=== PATIENT | female | born 1980 | race Caucasian/White ===

== ENCOUNTER 2018-08-16 21:44 | Emergency (ER) | payer MEDICAID ==
[~2018-08-16] VITALS: Ht 147.3 cm; Wt 80.5 kg
[~2018-08-16 21:44] MED LIST: AZIT500T5 PO; DOXE150C PO; GABA600T13 PO; LACT1CAP26 PO; METO25TA6 PO; SUCR1TAB34 PO; TIZA2TAB4 PO; UMEC1DIS INH
[2018-08-16] MEDS ORDERED: ipratropium/albuterol 3ml nebule NEB ONE (22:15)
[2018-08-16] MEDS ORDERED: predniSONE 20 mg tablet PO ONE (22:15)
[2018-08-16 22:32] LABS: BASOPHILS # (AUTO) 0.1 X10'3 (0-0.2); BASOPHILS % (AUTO) 0.6 % (0-1); EOSINOPHILS # (AUTO) 0.3 X10'3 (0-0.9); EOSINOPHILS % (AUTO) 1.5 % (0-6); HEMATOCRIT 40.8 % (35.0-45.0); HEMOGLOBIN 13.8 g/dl (12.0-16.0); LYMPHOCYTES # (AUTO) 2.4 X10'3 (1.1-4.8); LYMPHOCYTES % (AUTO) 14.1 % (21-51); MEAN CORPUSCULAR HEMOGLOBIN 30.2 PG (27.0-31.0); MEAN CORPUSCULAR HGB CONC 33.8 g/dL (33.0-36.5); MEAN CORPUSCULAR VOLUME 89.4 FL (78-98); MEAN PLATELET VOLUME 7.7 FL (7.4-10.4); MONOCYTES # (AUTO) 1.1 X10'3 (0-0.9); MONOCYTES % (AUTO) 6.4 % (2-12); NEUTROPHILS # (AUTO) 13.1 X10'3 (1.8-7.7); NEUTROPHILS % (AUTO) 77.4 % (42-75); PLATELET COUNT 278 X10'3 (140-440); RED BLOOD COUNT 4.56 X10'6 (4.20-5.60); RED CELL DISTRIBUTION WIDTH 14.2 % (11.5-14.5); WHITE BLOOD COUNT 16.9 X10'3 (4.5-11.0)
[2018-08-16 22:41] LABS: ALANINE AMINOTRANSFERASE 15 U/L (12-78); ALBUMIN 3.3 G/DL (3.4-5.0); ALBUMIN/GLOBULIN RATIO 0.9 (1.1-1.5); ALKALINE PHOSPHATASE 120 IU/L (46-116); ANION GAP 10 (8-16); ASPARTATE AMINO TRANSFERASE 12 U/L (10-37); BILIRUBIN,TOTAL 0.3 MG/DL (0.1-1.0); BLOOD UREA NITROGEN 5 MG/DL (7-18); BUN/CREATININE RATIO 6.1 (6.6-38.0); CALCIUM 8.8 MG/DL (8.5-10.1); CHLORIDE 103 MMOL/L (99-107); CREATININE 0.82 MG/DL (0.40-0.90); GLUCOSE 106 MG/DL (70-104); POTASSIUM 3.2 MMOL/L (3.5-5.1); SODIUM 137 MMOL/L (135-145); eGFR 79 ML/MIN
[2018-08-16 22:56] LABS: PLATELET ESTIMATE NORMAL; TOTAL CELLS COUNTED 100
[2018-08-16 23:29] LABS: CLARITY,URINE CLEAR (Clear); COLOR,URINE YELLOW (Yellow); GLUCOSE, URINE NEGATIVE (Neg); KETONES,URINE NEGATIVE (Neg); LEUKOCYTE ESTERASE ,URINE NEGATIVE (Neg); NITRITES, URINE NEGATIVE (Neg); OCCULT BLOOD,URINE NEGATIVE (Neg); PROTEIN,URINE NEGATIVE (Neg); UA COLLECTION TYPE OTHER; UROBILINOGEN,URINE 0.2 E.U/dL (0.2-1.0)
[2018-08-16 23:46] LABS: URINE AMPHETAMINE SCREEN NEGATIVE (Neg); URINE BARBITUATE SCREEN NEGATIVE (Neg); URINE BENZODIAZEPINES SCREEN NEGATIVE (Neg); URINE CANNABINOID SCREEN POSITIVE (Neg); URINE COCAINE SCREEN NEGATIVE (Neg); URINE METHADONE SCREEN NEGATIVE (Neg); URINE OPIATE SCREEN NEGATIVE (Neg); URINE PHENCYCLIDINE SCREEN NEGATIVE (Neg)
[2018-08-16] MEDS ORDERED: ALBU6.7H INH (23:55)
[2018-08-16] MEDS ORDERED: AZIT250T2 PO (23:55)
[2018-08-16] MEDS ORDERED: PRED20TA PO (23:55)
[2018-08-17 00:21] VITALS: BP 131/78
== END 2018-08-17 00:23 | disposition home or self-care (01) ==
LOC: ER 21:45
DX: J45.909 Unspecified asthma, uncomplicated (principal); F17.200 Nicotine dependence, unspecified, uncomplicated; I48.91 Unspecified atrial fibrillation; K21.9 Gastro-esophageal reflux disease without esophagitis; Z88.1 Allergy status to other antibiotic agents; Z79.899 Other long term (current) drug therapy
CPT/HCPCS: 36415; 71045; 80053; 80305; 81003; 83605; 84145; 85025; 87040; 94640; 94760; 99284; J7512

== ENCOUNTER 2019-05-11 16:38 | Emergency (ER) | payer MEDICAID, OTHER ==
[~2019-05-11] VITALS: Ht 147.3 cm; Wt 78.6 kg
[~2019-05-11 16:38] MED LIST changes: +ALBU6.7H9 INH; -AZIT500T5 PO; +AZIT500T9 PO; +IBUP-1985 PO; -TIZA2TAB4 PO; +TIZA2TAB5 PO
[2019-05-11 17:44] LABS: BASOPHILS # (AUTO) 0.1 X10'3 (0-0.2); BASOPHILS % (AUTO) 0.3 % (0-1); EOSINOPHILS % (AUTO) 0 % (0-6); HEMATOCRIT 39.1 % (35.0-45.0); HEMOGLOBIN 13.7 g/dl (12.0-16.0); LYMPHOCYTES # (AUTO) 1.7 X10'3 (1.1-4.8); LYMPHOCYTES % (AUTO) 7.9 % (21-51); MEAN CORPUSCULAR HEMOGLOBIN 31.7 PG (27.0-31.0); MEAN CORPUSCULAR VOLUME 90.5 FL (78-98); MEAN PLATELET VOLUME 7.8 FL (7.4-10.4); MONOCYTES # (AUTO) 1.3 X10'3 (0-0.9); MONOCYTES % (AUTO) 5.7 % (2-12); NEUTROPHILS % (AUTO) 86.1 % (42-75); PLATELET COUNT 256 X10'3 (140-440); RED BLOOD COUNT 4.32 X10'6 (4.20-5.60); RED CELL DISTRIBUTION WIDTH 12.7 % (11.5-14.5); WHITE BLOOD COUNT 22.1 X10'3 (4.5-11.0)
[2019-05-11] MEDS ORDERED: normal saline 1000ML IV soln IVB ONE ×2 (17:55→18:25)
[2019-05-11 17:56] LABS: ALANINE AMINOTRANSFERASE 22 U/L (12-78); ALBUMIN 3.3 G/DL (3.4-5.0); ALBUMIN/GLOBULIN RATIO 0.9 (1.1-1.5); ALKALINE PHOSPHATASE 119 IU/L (46-116); ANION GAP 9 (8-16); ASPARTATE AMINO TRANSFERASE 20 U/L (10-37); BILIRUBIN,TOTAL 0.2 MG/DL (0.1-1.0); BLOOD UREA NITROGEN 8 MG/DL (7-18); BUN/CREATININE RATIO 10.1 (6.6-38.0); CALCIUM 8.4 MG/DL (8.5-10.1); CHLORIDE 104 MMOL/L (99-107); CREATININE 0.79 MG/DL (0.40-0.90); GLUCOSE 112 MG/DL (70-104); SODIUM 138 MMOL/L (135-145); TOTAL CARBON DIOXIDE 25.3 MMOL/L (24-32); TOTAL PROTEIN 7.1 G/DL (6.4-8.2); eGFR 82 ML/MIN
[2019-05-11] MEDS ORDERED: metoprolol tartrate 50mg tablet PO ONE (18:25)
[2019-05-11] MEDS ORDERED: CefTRIAXone 2gm/D5W 50ml 50 ML IV ONE (19:05)
[2019-05-11 20:13] VITALS: BP 114/71
== END 2019-05-11 20:10 | disposition home or self-care (01) ==
LOC: ER 16:39
DX: J18.1 Lobar pneumonia, unspecified organism (principal); I47.1 Supraventricular tachycardia; I48.91 Unspecified atrial fibrillation; K21.9 Gastro-esophageal reflux disease without esophagitis; F41.9 Anxiety disorder, unspecified; Z88.1 Allergy status to other antibiotic agents; Z88.8 Allergy status to other drugs, medicaments and biological substances; Z79.899 Other long term (current) drug therapy
CPT/HCPCS: 36415; 71045; 80053; 84145; 84484; 85025; 93005; 96365; 99284; J0696; J7030

== ENCOUNTER 2019-11-20 11:36 | Emergency (ER) | payer MEDICAID ==
[~2019-11-20] VITALS: Ht 147.3 cm; Wt 85.0 kg
[~2019-11-20 11:36] MED LIST changes: -TIZA2TAB5 PO; +TIZA2TAB7 PO
[2019-11-20 12:36] LABS: BASOPHILS # (AUTO) 0.1 X10'3 (0-0.2); BASOPHILS % (AUTO) 0.4 % (0-1); EOSINOPHILS # (AUTO) 0.6 X10'3 (0-0.9); EOSINOPHILS % (AUTO) 4.1 % (0-6); HEMOGLOBIN 14.7 g/dl (12.0-16.0); LYMPHOCYTES # (AUTO) 3.4 X10'3 (1.1-4.8); LYMPHOCYTES % (AUTO) 23.6 % (21-51); MEAN CORPUSCULAR HEMOGLOBIN 31.8 PG (27.0-31.0); MEAN CORPUSCULAR HGB CONC 34.1 g/dL (33.0-36.5); MEAN CORPUSCULAR VOLUME 93.3 FL (78-98); MEAN PLATELET VOLUME 7.4 FL (7.4-10.4); MONOCYTES # (AUTO) 0.8 X10'3 (0-0.9); MONOCYTES % (AUTO) 5.7 % (2-12); NEUTROPHILS # (AUTO) 9.5 X10'3 (1.8-7.7); NEUTROPHILS % (AUTO) 66.2 % (42-75); PLATELET COUNT 340 X10'3 (140-440); RED BLOOD COUNT 4.61 X10'6 (4.20-5.60); RED CELL DISTRIBUTION WIDTH 13.3 % (11.5-14.5); WHITE BLOOD COUNT 14.3 X10'3 (4.5-11.0)
[2019-11-20 12:43] LABS: D-DIMER 0.28 MG/L FEU (0-0.50)
[2019-11-20 12:46] LABS: ALANINE AMINOTRANSFERASE 18 U/L (12-78); ALBUMIN 3.6 G/DL (3.4-5.0); ALBUMIN/GLOBULIN RATIO 0.9 (1.1-1.5); ALKALINE PHOSPHATASE 134 IU/L (46-116); ANION GAP 10 (8-16); ASPARTATE AMINO TRANSFERASE 13 U/L (10-37); BILIRUBIN,TOTAL 0.2 MG/DL (0.1-1.0); BLOOD UREA NITROGEN 6 MG/DL (7-18); BUN/CREATININE RATIO 6.2 (6.6-38.0); CALCIUM 9.1 MG/DL (8.5-10.1); CHLORIDE 106 MMOL/L (99-107); CREATININE 0.97 MG/DL (0.40-0.90); GLUCOSE 101 MG/DL (70-104); POTASSIUM 4.5 MMOL/L (3.5-5.1); SODIUM 143 MMOL/L (135-145); TOTAL CARBON DIOXIDE 26.9 MMOL/L (24-32); TOTAL PROTEIN 7.4 G/DL (6.4-8.2); eGFR 65 ML/MIN
[2019-11-20 12:52] LABS: CLARITY,URINE TURBID (Clear); COLOR,URINE RED (Yellow); GLUCOSE, URINE NEGATIVE (Neg); KETONES,URINE NEGATIVE (Neg); LEUKOCYTE ESTERASE ,URINE TRACE (Neg); NITRITES, URINE NEGATIVE (Neg); OCCULT BLOOD,URINE LARGE (Neg); PROTEIN,URINE 30 mg/dl (Neg); UROBILINOGEN,URINE 0.2 E.U/dL (0.2-1.0)
[2019-11-20 12:56] LABS: UA COLLECTION TYPE CLN CATCH MIDSTREAM
[2019-11-20 13:09] LABS: BACTERIA,URINE NONE SEEN /HPF (Neg); RBC,URINE TNTC /HPF (0-2); SQUAMOUS EPITHELIAL CELL,UR FEW /LPF (FEW); WBC,URINE 0-4 /HPF (0-4)
[2019-11-20] MEDS ORDERED: metoprolol succinate 25mg (24-HOUR) SR. Tablet PO ONE (13:35)
[2019-11-20] MEDS ORDERED: acetaminophen 325mg tablet PO ONE (13:35)
[2019-11-20 13:49] VITALS: BP 115/79
[2019-11-20 15:16] LABS: URINE HCG NEGATIVE (NEG)
== END 2019-11-20 13:52 | disposition home or self-care (01) ==
LOC: ER 11:37
DX: R00.2 Palpitations (principal); R53.1 Weakness; I48.91 Unspecified atrial fibrillation; K21.9 Gastro-esophageal reflux disease without esophagitis; F41.9 Anxiety disorder, unspecified; Z87.440 Personal history of urinary (tract) infections; Z88.1 Allergy status to other antibiotic agents; Z88.8 Allergy status to other drugs, medicaments and biological substances; Z79.2 Long term (current) use of antibiotics; Z79.899 Other long term (current) drug therapy
CPT/HCPCS: 36415; 71045; 80053; 81001; 81025; 83735; 83880; 84484; 85025; 85379; 87088; 93005; 99285

== ENCOUNTER 2020-12-21 19:52 | Emergency (ER) | payer MEDICAID ==
[~2020-12-21] VITALS: Ht 147.3 cm; Wt 91.0 kg
[~2020-12-21 19:52] MED LIST changes: +LOP25T PO; -METO25TA6 PO; +TIZA-189 PO; -TIZA2TAB7 PO
[2020-12-21] MEDS ORDERED: albuterol 2.5 MG/3 ML nebule CONTNEB PRN (20:20)
[2020-12-21] MEDS ORDERED: AZIT-63 PO (21:36)
[2020-12-21 22:09] VITALS: BP 143/72
== END 2020-12-21 22:13 | disposition home or self-care (01) ==
LOC: ER 19:53
DX: J45.909 Unspecified asthma, uncomplicated (principal); J20.9 Acute bronchitis, unspecified; K21.9 Gastro-esophageal reflux disease without esophagitis; I48.91 Unspecified atrial fibrillation; Z20.822 Contact with and (suspected) exposure to COVID-19; Z87.440 Personal history of urinary (tract) infections; Z88.1 Allergy status to other antibiotic agents; Z88.5 Allergy status to narcotic agent; Z79.899 Other long term (current) drug therapy
CPT/HCPCS: 71045; 87635; 94640; 94644; 99285; C9803; 94760; A7015

== ENCOUNTER 2021-04-23 18:25 | Emergency (ER) | payer MEDICAID ==
[~2021-04-23] VITALS: Ht 149.9 cm; Wt 81.8 kg
[2021-04-23 18:33] VITALS: BP 127/76
[2021-04-23] MEDS ORDERED: bisacodyl 10mg suppository rectal RC STA (19:34)
[2021-04-23] MEDS ORDERED: BISA10SU62 RC (19:35)
[2021-04-23] MEDS ORDERED: magnesium citrate 296ml oral solution PO ONE (19:35)
== END 2021-04-23 20:52 | disposition home or self-care (01) ==
LOC: ER 18:26
DX: K59.00 Constipation, unspecified (principal); I48.91 Unspecified atrial fibrillation; K21.9 Gastro-esophageal reflux disease without esophagitis; F41.9 Anxiety disorder, unspecified; Z87.440 Personal history of urinary (tract) infections; Z88.5 Allergy status to narcotic agent; Z88.1 Allergy status to other antibiotic agents; Z88.8 Allergy status to other drugs, medicaments and biological substances; Z79.2 Long term (current) use of antibiotics; Z79.899 Other long term (current) drug therapy
CPT/HCPCS: 74018; 99283; 99284

== ENCOUNTER 2021-09-16 12:03 | Emergency (ER) | payer MEDICAID ==
[~2021-09-16] VITALS: Ht 152.4 cm; Wt 83.6 kg
[~2021-09-16 12:03] MED LIST changes: +BISA10SU62 RC
[2021-09-16 13:09] LABS: BASOPHILS # (AUTO) 0.1 X10'3 (0-0.2); BASOPHILS % (AUTO) 0.5 % (0-1); EOSINOPHILS # (AUTO) 0.4 X10'3 (0-0.9); EOSINOPHILS % (AUTO) 3.2 % (0-6); HEMATOCRIT 39.9 % (35.0-45.0); HEMOGLOBIN 13.4 g/dl (12.0-16.0); LYMPHOCYTES # (AUTO) 1.1 X10'3 (1.1-4.8); LYMPHOCYTES % (AUTO) 8.7 % (21-51); MEAN CORPUSCULAR HEMOGLOBIN 30.1 PG (27.0-31.0); MEAN CORPUSCULAR HGB CONC 33.6 g/dL (33.0-36.5); MEAN CORPUSCULAR VOLUME 89.4 FL (78-98); MEAN PLATELET VOLUME 6.6 FL (7.4-10.4); MONOCYTES % (AUTO) 7.6 % (2-12); NEUTROPHILS # (AUTO) 10.3 X10'3 (1.8-7.7); PLATELET COUNT 327 X10'3 (140-440); RED BLOOD COUNT 4.46 X10'6 (4.20-5.60); RED CELL DISTRIBUTION WIDTH 13.7 % (11.5-14.5); WHITE BLOOD COUNT 12.9 X10'3 (4.5-11.0)
[2021-09-16 13:30] LABS: ALANINE AMINOTRANSFERASE 28 U/L (12-78); ALBUMIN 3.8 G/DL (3.4-5.0); ALKALINE PHOSPHATASE 128 IU/L (46-116); ANION GAP 10 (8-16); ASPARTATE AMINO TRANSFERASE 16 U/L (10-37); BILIRUBIN,TOTAL 0.2 MG/DL (0.1-1.0); BLOOD UREA NITROGEN 7 MG/DL (7-18); BUN/CREATININE RATIO 9.7 (6.6-38.0); CALCIUM 8.9 MG/DL (8.5-10.1); CHLORIDE 97 MMOL/L (99-107); CREATININE 0.72 MG/DL (0.40-0.90); GLUCOSE 100 MG/DL (70-104); SODIUM 133 MMOL/L (135-145); TOTAL CARBON DIOXIDE 26.4 MMOL/L (24-32); TOTAL PROTEIN 7.6 G/DL (6.4-8.2); eGFR > 90 ML/MIN
[2021-09-16] MEDS ORDERED: CefTRIAXone 2gm/D5W 50ml BAG 50 ML IV ONE (13:40)
[2021-09-16] MEDS ORDERED: magnesium 2GM in 50ml NS 50 ML IV ONE (13:40)
[2021-09-16] MEDS ORDERED: methylPREDNISolone sod succ 125mg/2ml vial IV ONE (13:40)
[2021-09-16] MEDS ORDERED: DOXY100C43 PO (13:43)
[2021-09-16] MEDS ORDERED: PRED20TA PO (13:43)
[2021-09-16] MEDS ORDERED: CefTRIAXone 2gm/NS 100ml IVPB 100 ML IV ONE (13:45)
[2021-09-16] MEDS ORDERED: normal saline 1000ML IV soln IVB ONE (13:45)
[2021-09-16 14:06] LABS: D-DIMER 0.32 MG/L FEU (0-0.50)
[2021-09-16 15:20] VITALS: BP 138/75
== END 2021-09-16 15:25 | disposition home or self-care (01) ==
LOC: ER 12:04
DX: J45.909 Unspecified asthma, uncomplicated (principal); I48.91 Unspecified atrial fibrillation; K21.9 Gastro-esophageal reflux disease without esophagitis; Z87.19 Personal history of other diseases of the digestive system; Z87.440 Personal history of urinary (tract) infections; Z88.1 Allergy status to other antibiotic agents; Z88.5 Allergy status to narcotic agent; Z88.8 Allergy status to other drugs, medicaments and biological substances; Z79.2 Long term (current) use of antibiotics; Z79.899 Other long term (current) drug therapy
CPT/HCPCS: 36415; 71045; 80053; 83880; 84484; 85025; 85379; 93005; 96365; 96368; 96375; 99285; J0696; J2930; J3475; J7030

== ENCOUNTER 2022-05-09 22:28 | Emergency (ER) | payer MEDICAID ==
[~2022-05-09] VITALS: Ht 152.4 cm; Wt 83.2 kg
[~2022-05-09 22:28] MED LIST changes: +ALBU6.7H14 INH; -ALBU6.7H9 INH
[2022-05-10 00:01] LABS: BASOPHILS % (AUTO) 0.2 % (0-1); EOSINOPHILS # (AUTO) 0.1 X10'3 (0-0.9); EOSINOPHILS % (AUTO) 0.6 % (0-6); HEMATOCRIT 39.3 % (35.0-45.0); HEMOGLOBIN 13.6 g/dl (12.0-16.0); LYMPHOCYTES # (AUTO) 2.8 X10'3 (1.1-4.8); LYMPHOCYTES % (AUTO) 11.8 % (21-51); MEAN CORPUSCULAR HEMOGLOBIN 31.6 PG (27.0-31.0); MEAN CORPUSCULAR HGB CONC 34.5 g/dL (33.0-36.5); MEAN CORPUSCULAR VOLUME 91.4 FL (78-98); MEAN PLATELET VOLUME 6.5 FL (7.4-10.4); MONOCYTES # (AUTO) 1.8 X10'3 (0-0.9); MONOCYTES % (AUTO) 7.5 % (2-12); NEUTROPHILS # (AUTO) 19.1 X10'3 (1.8-7.7); NEUTROPHILS % (AUTO) 79.9 % (42-75); PLATELET COUNT 383 X10'3 (140-440); RED CELL DISTRIBUTION WIDTH 13.1 % (11.5-14.5); WHITE BLOOD COUNT 23.9 X10'3 (4.5-11.0)
[2022-05-10 00:04] LABS: ALANINE AMINOTRANSFERASE 25 U/L (12-78); ALBUMIN 3.8 G/DL (3.4-5.0); ALBUMIN/GLOBULIN RATIO 1.1 (1.1-1.5); ALKALINE PHOSPHATASE 119 IU/L (46-116); ANION GAP 8 (8-16); ASPARTATE AMINO TRANSFERASE 15 U/L (10-37); BILIRUBIN,TOTAL 0.2 MG/DL (0.1-1.0); BLOOD UREA NITROGEN 6 MG/DL (7-18); BUN/CREATININE RATIO 8.2 (6.6-38.0); CALCIUM 9.1 MG/DL (8.5-10.1); CHLORIDE 101 MMOL/L (99-107); CREATININE 0.73 MG/DL (0.40-0.90); GLUCOSE 97 MG/DL (70-104); MAGNESIUM 1.9 MG/DL (1.5-2.4); POTASSIUM 3.4 MMOL/L (3.5-5.1); SODIUM 134 MMOL/L (135-145); TOTAL CARBON DIOXIDE 24.9 MMOL/L (24-32); TOTAL PROTEIN 7.2 G/DL (6.4-8.2); eGFR 89 ML/MIN
[2022-05-10] MEDS ORDERED: azithromycin 250mg tablet PO ONE (02:10)
[2022-05-10] MEDS ORDERED: CefTRIAXone 2gm/D5W 50ml BAG 50 ML IV ONE (02:10)
[2022-05-10] MEDS ORDERED: magnesium 2GM in 50ml NS 50 ML IV ONE (02:10)
[2022-05-10] MEDS ORDERED: albuterol 2.5 MG/3 ML nebule NEB ONE (02:10)
[2022-05-10] MEDS ORDERED: normal saline 1000ML IV soln IVB ONE (02:10)
[2022-05-10] MEDS ORDERED: ipratropium/albuterol 3ml nebule NEB ONE (02:10)
[2022-05-10 03:15] VITALS: BP 122/65
[2022-05-10] MEDS ORDERED: BUDE90AE IH (04:09)
[2022-05-10] MEDS ORDERED: AZIT250T PO (04:09)
== END 2022-05-10 04:46 | disposition home or self-care (01) ==
LOC: ER 22:29
DX: J45.901 Unspecified asthma with (acute) exacerbation (principal); Z20.822 Contact with and (suspected) exposure to COVID-19; R06.02 Shortness of breath; R05.9 Cough, unspecified; R11.2 Nausea with vomiting, unspecified; I48.91 Unspecified atrial fibrillation; J45.909 Unspecified asthma, uncomplicated; K21.9 Gastro-esophageal reflux disease without esophagitis; G89.29 Other chronic pain; F41.9 Anxiety disorder, unspecified; F31.9 Bipolar disorder, unspecified; Z87.440 Personal history of urinary (tract) infections; Z88.5 Allergy status to narcotic agent; Z88.1 Allergy status to other antibiotic agents; Z88.8 Allergy status to other drugs, medicaments and biological substances; Z79.2 Long term (current) use of antibiotics; Z79.899 Other long term (current) drug therapy
CPT/HCPCS: 36415; 71045; 80053; 83605; 83735; 83880; 84145; 84484; 85025; 87040; 87502; 87503; 87635; 93005; 94640; 96361; 96365; 96366; 96367; 99285; C9803; J0696; J3475; J7030; 94760; 96368

== ENCOUNTER 2023-02-27 11:09 | Emergency (ER) | payer MEDICAID ==
[~2023-02-27] VITALS: Ht 152.4 cm; Wt 84.1 kg
[~2023-02-27 11:09] MED LIST changes: +BUDE90AE IH
[2023-02-27 12:14] VITALS: TEMP 98.3
[2023-02-27 12:59] LABS: D-DIMER 0.35 MG/L FEU (0-0.50)
[2023-02-27 13:00] LABS: BASOPHILS # (AUTO) 0.1 X10'3 (0-0.2); BASOPHILS % (AUTO) 0.4 % (0-1); EOSINOPHILS # (AUTO) 0.2 X10'3 (0-0.9); EOSINOPHILS % (AUTO) 1.5 % (0-6); HEMATOCRIT 40.9 % (35.0-45.0); HEMOGLOBIN 13.8 g/dl (12.0-16.0); LYMPHOCYTES # (AUTO) 2.1 X10'3 (1.1-4.8); LYMPHOCYTES % (AUTO) 14.6 % (21-51); MEAN CORPUSCULAR HEMOGLOBIN 31.5 PG (27.0-31.0); MEAN CORPUSCULAR HGB CONC 33.8 g/dL (33.0-36.5); MEAN CORPUSCULAR VOLUME 93.1 FL (78-98); MEAN PLATELET VOLUME 6.6 FL (7.4-10.4); MONOCYTES # (AUTO) 1.4 X10'3 (0-0.9); MONOCYTES % (AUTO) 9.3 % (2-12); NEUTROPHILS # (AUTO) 10.9 X10'3 (1.8-7.7); NEUTROPHILS % (AUTO) 74.2 % (42-75); PLATELET COUNT 331 X10'3 (140-440); RED CELL DISTRIBUTION WIDTH 13.3 % (11.5-14.5); WHITE BLOOD COUNT 14.6 X10'3 (4.5-11.0)
[2023-02-27 13:05] LABS: ALANINE AMINOTRANSFERASE 17 U/L (12-78); ALBUMIN 3.6 G/DL (3.4-5.0); ALBUMIN/GLOBULIN RATIO 1.1 (1.1-1.5); ALKALINE PHOSPHATASE 112 IU/L (46-116); ANION GAP 6 (8-16); ASPARTATE AMINO TRANSFERASE 15 U/L (10-37); BILIRUBIN,TOTAL 0.3 MG/DL (0.1-1.0); BLOOD UREA NITROGEN 3 MG/DL (7-18); BUN/CREATININE RATIO 4.8 (10.0-20.0); CALCIUM 9.1 MG/DL (8.5-10.1); CHLORIDE 99 MMOL/L (99-107); CREATININE 0.62 MG/DL (0.40-0.90); GLUCOSE 99 MG/DL (70-104); POTASSIUM 3.8 MMOL/L (3.5-5.1); SODIUM 131 MMOL/L (135-145); eCRCL 87 ML/MIN; eGFR > 90 ML/MIN
[2023-02-27 13:16] LABS: PRO BRAIN NATRIURETIC PEPTIDE 92 PG/ML (0-125)
[2023-02-27] MEDS ORDERED: ipratropium/albuterol 3ml nebule NEB ONE (16:40)
[2023-02-27 17:23] VITALS: PULSE 93; RESP 22; O2SAT 91
[2023-02-27] MEDS ORDERED: amox tr/potassium clavulanate 875/125mg TAB PO ONE (17:25)
[2023-02-27] MEDS ORDERED: ALBU8HFA PO (17:26)
[2023-02-27] MEDS ORDERED: AMOX-580 PO (17:26)
[2023-02-27 17:28] VITALS: PULSE 95; RESP 22; O2SAT 100
[2023-02-27] MEDS ORDERED: predniSONE 20 mg tablet PO ONE (17:40)
[2023-02-27 17:49] VITALS: BP 114/69; PULSE 88; O2SAT 92
[2023-02-27 17:54] VITALS: RESP 20
== END 2023-02-27 18:06 | disposition home or self-care (01) ==
LOC: ER 11:09
DX: J20.9 Acute bronchitis, unspecified (principal); Z20.822 Contact with and (suspected) exposure to COVID-19; I48.91 Unspecified atrial fibrillation; I25.10 Atherosclerotic heart disease of native coronary artery without angina pectoris; I25.2 Old myocardial infarction; J44.9 Chronic obstructive pulmonary disease, unspecified; K21.9 Gastro-esophageal reflux disease without esophagitis; G89.29 Other chronic pain; F17.200 Nicotine dependence, unspecified, uncomplicated; Z88.1 Allergy status to other antibiotic agents; Z88.5 Allergy status to narcotic agent; Z79.2 Long term (current) use of antibiotics; Z79.899 Other long term (current) drug therapy
CPT/HCPCS: 36415; 71045; 80053; 83880; 84484; 85025; 85379; 93005; 94640; 99285; J7512; 94760; A4615

== ENCOUNTER 2023-04-17 16:22 | Emergency (ER) | payer MEDICAID ==
[~2023-04-17] VITALS: Ht 152.4 cm; Wt 85.0 kg
[2023-04-17] MEDS ORDERED: dexamethasone sod phosphate 10mg/ml inj IV STA (16:39)
[2023-04-17] MEDS ORDERED: ipratropium 0.5 MG/2.5ML nebule IH PRN (16:40)
[2023-04-17] MEDS ORDERED: albuterol 2.5 MG/3 ML nebule NEB PRN (16:40)
[2023-04-17 17:34] LABS: BASOPHILS % (AUTO) 0.1 % (0-1); EOSINOPHILS % (AUTO) 0 % (0-6); HEMATOCRIT 37.9 % (35.0-45.0); HEMOGLOBIN 12.9 g/dl (12.0-16.0); LYMPHOCYTES # (AUTO) 1.4 X10'3 (1.1-4.8); LYMPHOCYTES % (AUTO) 6.7 % (21-51); MEAN CORPUSCULAR HGB CONC 34.1 g/dL (33.0-36.5); MEAN CORPUSCULAR VOLUME 90.9 FL (78-98); MEAN PLATELET VOLUME 6.3 FL (7.4-10.4); MONOCYTES # (AUTO) 1.2 X10'3 (0-0.9); MONOCYTES % (AUTO) 5.7 % (2-12); NEUTROPHILS # (AUTO) 18.7 X10'3 (1.8-7.7); NEUTROPHILS % (AUTO) 87.5 % (42-75); PLATELET COUNT 353 X10'3 (140-440); RED BLOOD COUNT 4.17 X10'6 (4.20-5.60); RED CELL DISTRIBUTION WIDTH 13.1 % (11.5-14.5); WHITE BLOOD COUNT 21.3 X10'3 (4.5-11.0)
[2023-04-17 17:46] LABS: ALANINE AMINOTRANSFERASE 16 U/L (12-78); ALBUMIN 3.7 G/DL (3.4-5.0); ALBUMIN/GLOBULIN RATIO 1.1 (1.1-1.5); ALKALINE PHOSPHATASE 119 IU/L (46-116); ANION GAP 8 (8-16); ASPARTATE AMINO TRANSFERASE 14 U/L (10-37); BILIRUBIN,TOTAL 0.2 MG/DL (0.1-1.0); BLOOD UREA NITROGEN 3 MG/DL (7-18); BUN/CREATININE RATIO 4.9 (10.0-20.0); CALCIUM 8.9 MG/DL (8.5-10.1); CHLORIDE 90 MMOL/L (99-107); CREATININE 0.61 MG/DL (0.40-0.90); GLUCOSE 134 MG/DL (70-104); SODIUM 124 MMOL/L (135-145); TOTAL CARBON DIOXIDE 26.1 MMOL/L (24-32); TOTAL PROTEIN 7.2 G/DL (6.4-8.2); eCRCL 88 ML/MIN; eGFR > 90 ML/MIN
[2023-04-17 17:54] LABS: C-REACTIVE PROTEIN 5.54 MG/DL (0.0-0.5); MAGNESIUM 1.5 MG/DL (1.5-2.4); PRO BRAIN NATRIURETIC PEPTIDE 107 PG/ML (0-125)
[2023-04-17 17:57] LABS: BETA HCG,QUANTITATIVE < 1.0 mIU/ml
[2023-04-17 19:49] VITALS: PULSE 98; RESP 18; O2SAT 96
[2023-04-17 19:52] VITALS: PULSE 97; RESP 18; O2SAT 98
[2023-04-17] MEDS ORDERED: CefTRIAXone/D5W-Rocephin 1gm 50 ML IV ONE (20:25)
[2023-04-17] MEDS ORDERED: CEFA500C PO (20:35)
[2023-04-17] MEDS ORDERED: DEXA0.5E2 PO (20:43)
[2023-04-17 20:55] VITALS: BP 134/61; PULSE 93; RESP 18; TEMP 98.8; O2SAT 94
== END 2023-04-17 21:00 | disposition left against medical advice (07) ==
LOC: ER 16:23
DX: E87.1 Hypo-osmolality and hyponatremia (principal); Z20.822 Contact with and (suspected) exposure to COVID-19; D72.829 Elevated white blood cell count, unspecified; R06.03 Acute respiratory distress
CPT/HCPCS: 36415; 71045; 80053; 83735; 83880; 84484; 84702; 85025; 85651; 86140; 87502; 87503; 87634; 87811; 93005; 94640; 96365; 96375; 99285; J0696; J1100; J3490; A4615

== ENCOUNTER 2023-05-22 10:49 | Inpatient (IN) | payer MEDICAID ==
[2023-05-22] VITALS (10 sets, daily range): PULSE 69–113; RESP 22–35; O2SAT 94–98
[~2023-05-22] VITALS: Ht 154.9 cm; Wt 80.8 kg
[~2023-05-22 10:49] MED LIST changes: +CEFA500C PO; +DEXA0.5E2 PO
[2023-05-22 11:18] LABS: BASOPHILS % (AUTO) 0.5 % (0-1); MEAN CORPUSCULAR VOLUME 90.2 FL (78-98)
[2023-05-22 11:19] LABS: EOSINOPHILS % (AUTO) 0 % (0-6); HEMATOCRIT 39.6 % (35.0-45.0); HEMOGLOBIN 13.5 g/dl (12.0-16.0); LYMPHOCYTES # (AUTO) 0.9 X10'3 (1.1-4.8); LYMPHOCYTES % (AUTO) 11.5 % (21-51); MEAN CORPUSCULAR HEMOGLOBIN 30.8 PG (27.0-31.0); MEAN CORPUSCULAR HGB CONC 34.1 g/dL (33.0-36.5); MEAN PLATELET VOLUME 6.9 FL (7.4-10.4); MONOCYTES % (AUTO) 12.9 % (2-12); NEUTROPHILS # (AUTO) 5.7 X10'3 (1.8-7.7); NEUTROPHILS % (AUTO) 75.1 % (42-75); PLATELET COUNT 189 X10'3 (140-440); RED BLOOD COUNT 4.39 X10'6 (4.20-5.60); RED CELL DISTRIBUTION WIDTH 13.6 % (11.5-14.5); WHITE BLOOD COUNT 7.6 X10'3 (4.5-11.0)
[2023-05-22 11:33] LABS: ALANINE AMINOTRANSFERASE 15 U/L (12-78); ALBUMIN 3.5 G/DL (3.4-5.0); ALKALINE PHOSPHATASE 97 IU/L (46-116); ANION GAP 7 (8-16); ASPARTATE AMINO TRANSFERASE 34 U/L (10-37); BILIRUBIN,TOTAL 0.2 MG/DL (0.1-1.0); BLOOD UREA NITROGEN 5 MG/DL (7-18); BUN/CREATININE RATIO 6.9 (10.0-20.0); CALCIUM 8.4 MG/DL (8.5-10.1); CHLORIDE 89 MMOL/L (99-107); CREATININE 0.72 MG/DL (0.40-0.90); GLUCOSE 123 MG/DL (70-104); POTASSIUM 3.6 MMOL/L (3.5-5.1); SODIUM 123 MMOL/L (135-145); TOTAL CARBON DIOXIDE 26.8 MMOL/L (24-32); eCRCL 78 ML/MIN; eGFR 90 ML/MIN
[2023-05-22] MEDS ORDERED: methylPREDNISolone sod succ 125mg/2ml vial IV ONE (11:45)
[2023-05-22] MEDS ORDERED: albuterol 2.5 MG/3 ML nebule CONTNEB PRN (11:45)
[2023-05-22] MEDS ORDERED: ipratropium 0.5 MG/2.5ML nebule IH ONE (11:45)
[2023-05-22 11:49] LABS: PRO BRAIN NATRIURETIC PEPTIDE 551 PG/ML (0-125)
[2023-05-22 13:56] LABS: ABG BASE EXCESS -1.2 mmol/L (-2.0-2.0); ABG OXYGEN SATURATION 87.4 % (94-97); ABG PCO2 (T) 36.5 mmHg (32.0-45.0); ABG PH (T) 7.417 (7.350-7.450); ABG PO2 (T) 50.5 mmHg (75.0-100.0); ALLEN'S TEST POSITIVE; FCOHb 2.1 % (0.0-3.9); FHHb 12.3 % (0.0-5.0); FLOW 4 L/min; FMetHb 0.2 % (0.0-1.5); FO2Hb 85.4 % (94-97); MODE NASAL CANNULA; PATIENT TEMPERATURE 36.6; TOTAL HEMOGLOBIN 14.2 G/dl (12.0-16.0)
[2023-05-22] MEDS ORDERED: magnesium 2GM in 50ml NS 50 ML IV PRN (14:25)
[2023-05-22] MEDS ORDERED: ondansetron/PF 4mg/2ml inj IV PRN (14:25)
[2023-05-22] MEDS ORDERED: potassium Cl 20 mEq SR tablet PO PRN ×2 (14:25)
[2023-05-22] MEDS ORDERED: acetaminophen 325mg tablet PO PRN ×2 (14:25)
[2023-05-22] MEDS ORDERED: potassium Cl 40MEQ/1/2NS 520ml 520 ML IV PRN (14:25)
[2023-05-22] MEDS ORDERED: mag hydrox/Alum hydrox/simeth 30ml oral suspension PO PRN (14:25)
[2023-05-22] MEDS ORDERED: magnesium 4gm in 100ml NS 100 ML IV PRN (14:25)
[2023-05-22] MEDS ORDERED: magnesium hydroxide 30ml (MOM) UD suspension PO PRN (14:25)
[2023-05-22] MEDS ORDERED: HYDROcodone/acetaminophen 5mg/325mg tablet PO PRN (14:25)
[2023-05-22] MEDS: normal saline 1000ml 1,000 ML IV SCH (14:25)
[2023-05-22] MEDS ORDERED: HYDROcodone/acetaminophen 10/325mg tab PO PRN (14:25)
[2023-05-22] MEDS: ipratropium/albuterol 3ml nebule NEB SCH ×2 (15:01→20:12)
[2023-05-22] MEDS ORDERED: LORazepam 2 mg/ml vial IV PRN (16:10)
[2023-05-22] MEDS: methylPREDNISolone sod succ/PF 40mg inj. IV SCH (16:31)
[2023-05-22] MEDS: doxycycline inj 100 MG in normal saline 100ml IV soln 100 ML IV SCH (18:32)
[2023-05-22] MEDS: K and/or MAG REPLACEMENT MC SCH (19:36)
[2023-05-22] MEDS: docusate sod 100mg capsule PO SCH (19:37)
[2023-05-22] MEDS ORDERED: metoprolol tartrate 50mg tablet PO SCH (20:00)
[2023-05-22] MEDS: oseltamivir phos 75mg capsule PO SCH (20:40)
[2023-05-22] MEDS: enoxaparin 40mg/0.4ml syringe SQ SCH (20:40)
[2023-05-23] VITALS (21 sets, daily range): BP systolic 96–112; BP diastolic 41–67; PULSE 60–104; RESP 20–36; TEMP 96.8–98.1; O2SAT 95–98
[2023-05-23] MEDS: normal saline 1000ml 1,000 ML IV SCH ×3 (00:20→20:25)
[2023-05-23] MEDS: methylPREDNISolone sod succ/PF 40mg inj. IV SCH ×3 (00:25→18:14)
[2023-05-23] MEDS: albuterol 2.5 MG/3 ML nebule NEB PRN ×3 (01:28→18:45)
[2023-05-23 03:47] LABS: ALANINE AMINOTRANSFERASE 21 U/L (12-78); ALBUMIN 3.2 G/DL (3.4-5.0); ALBUMIN/GLOBULIN RATIO 0.9 (1.1-1.5); ALKALINE PHOSPHATASE 94 IU/L (46-116); ANION GAP 9 (8-16); ASPARTATE AMINO TRANSFERASE 42 U/L (10-37); BILIRUBIN,TOTAL 0.2 MG/DL (0.1-1.0); BLOOD UREA NITROGEN 6 MG/DL (7-18); CALCIUM 8.5 MG/DL (8.5-10.1); CHLORIDE 94 MMOL/L (99-107); CREATININE 0.46 MG/DL (0.40-0.90); GLUCOSE 109 MG/DL (70-104); MAGNESIUM 1.8 MG/DL (1.5-2.4); POTASSIUM 4.7 MMOL/L (3.5-5.1); SODIUM 128 MMOL/L (135-145); TOTAL CARBON DIOXIDE 25.3 MMOL/L (24-32); TOTAL PROTEIN 6.7 G/DL (6.4-8.2); eCRCL 123 ML/MIN; eGFR > 90 ML/MIN
[2023-05-23 03:58] LABS: BASOPHILS % (AUTO) 0.1 % (0-1); EOSINOPHILS % (AUTO) 0 % (0-6); HEMOGLOBIN 12.9 g/dl (12.0-16.0); LYMPHOCYTES # (AUTO) 0.6 X10'3 (1.1-4.8); LYMPHOCYTES % (AUTO) 6.7 % (21-51); MEAN CORPUSCULAR HEMOGLOBIN 30.7 PG (27.0-31.0); MEAN CORPUSCULAR VOLUME 90.3 FL (78-98); MEAN PLATELET VOLUME 7.3 FL (7.4-10.4); MONOCYTES # (AUTO) 0.4 X10'3 (0-0.9); MONOCYTES % (AUTO) 4.4 % (2-12); NEUTROPHILS # (AUTO) 7.9 X10'3 (1.8-7.7); NEUTROPHILS % (AUTO) 88.8 % (42-75); PLATELET COUNT 171 X10'3 (140-440); RED CELL DISTRIBUTION WIDTH 13.7 % (11.5-14.5); WHITE BLOOD COUNT 8.9 X10'3 (4.5-11.0)
[2023-05-23] MEDS: ipratropium/albuterol 3ml nebule NEB SCH ×3 (07:31→22:55)
[2023-05-23] MEDS: K and/or MAG REPLACEMENT MC SCH ×2 (08:00→20:00)
[2023-05-23 08:17] LABS: ABG BASE EXCESS -2.7 mmol/L (-2.0-2.0); ABG HCO3 22.2 mmol/L (22.0-26.0); ABG OXYGEN SATURATION 94.9 % (94-97); ABG PH (T) 7.373 (7.350-7.450); ABG PO2 (T) 75.9 mmHg (75.0-100.0); ALLEN'S TEST POSITIVE; FCOHb 1.5 % (0.0-3.9); FMetHb 0.3 % (0.0-1.5); FO2Hb 93.2 % (94-97); MODE MASK - BIPAP; RESPIRATORY RATE 10 b/min; TOTAL HEMOGLOBIN 14.1 G/dl (12.0-16.0)
[2023-05-23] MEDS ORDERED: metoprolol tartrate 25mg tablet PO SCH ×2 (09:28→10:00)
[2023-05-23] MEDS: doxycycline inj 100 MG in normal saline 100ml IV soln 100 ML IV SCH ×2 (09:36→21:22)
[2023-05-23] MEDS: docusate sod 100mg capsule PO SCH ×2 (10:51→20:27)
[2023-05-23] MEDS: oseltamivir phos 75mg capsule PO SCH ×2 (10:52→20:29)
[2023-05-23] MEDS ORDERED: CYCL5TAB PO (16:13)
[2023-05-23] MEDS ORDERED: LORA-268 PO (16:13)
[2023-05-23] MEDS ORDERED: PRAZ2CAP2 PO (16:13)
[2023-05-23] MEDS ORDERED: OLAN5TAB75 PO (16:13)
[2023-05-23] MEDS ORDERED: MECL-302 PO (16:13)
[2023-05-23] MEDS ORDERED: METO-384 PO (16:13)
[2023-05-23] MEDS ORDERED: ESZO3TAB44 PO (16:13)
[2023-05-23] MEDS ORDERED: OXCA300T16 PO (16:13)
[2023-05-23] MEDS ORDERED: OLANZAPINE 5 MG TABLET PO PRN (17:50)
[2023-05-23] MEDS ORDERED: LORazepam 0.5 MG tablet PO PRN (17:50)
[2023-05-23] MEDS ORDERED: meclizine 12.5mg tablet PO PRN (17:50)
[2023-05-23] MEDS: enoxaparin 40mg/0.4ml syringe SQ SCH (20:00)
[2023-05-23] MEDS: zolpidem 5mg tablet PO SCH (20:27)
[2023-05-23] MEDS: metoprolol succinate 25mg (24-HOUR) SR. Tablet PO SCH (20:27)
[2023-05-23] MEDS: prazosin 1mg capsule PO SCH (20:28)
[2023-05-23] MEDS: cyclobenzaprine 10mg tablet PO SCH (20:29)
[2023-05-23] MEDS: oxcarbazepine 150mg tablet PO SCH (21:20)
[2023-05-24] VITALS (16 sets, daily range): BP systolic 90–137; BP diastolic 48–66; PULSE 60–103; RESP 15–26; TEMP 97.2–98.4; O2SAT 94–99
[2023-05-24] MEDS: methylPREDNISolone sod succ/PF 40mg inj. IV SCH ×3 (00:07→16:51)
[2023-05-24] MEDS: albuterol 2.5 MG/3 ML nebule NEB PRN (03:25)
[2023-05-24] MEDS: normal saline 1000ml 1,000 ML IV SCH ×2 (06:25→16:52)
[2023-05-24] MEDS: ipratropium/albuterol 3ml nebule NEB SCH ×3 (07:39→19:29)
[2023-05-24] MEDS: K and/or MAG REPLACEMENT MC SCH ×2 (08:00→20:00)
[2023-05-24] MEDS: docusate sod 100mg capsule PO SCH ×2 (08:00→20:32)
[2023-05-24 08:27] LABS: BASOPHILS % (AUTO) 0.1 % (0-1); EOSINOPHILS % (AUTO) 0 % (0-6); HEMATOCRIT 37.4 % (35.0-45.0); HEMOGLOBIN 12.6 g/dl (12.0-16.0); LYMPHOCYTES # (AUTO) 1.3 X10'3 (1.1-4.8); LYMPHOCYTES % (AUTO) 17.5 % (21-51); MEAN CORPUSCULAR HEMOGLOBIN 30.7 PG (27.0-31.0); MEAN CORPUSCULAR HGB CONC 33.7 g/dL (33.0-36.5); MEAN CORPUSCULAR VOLUME 90.9 FL (78-98); MEAN PLATELET VOLUME 7.4 FL (7.4-10.4); MONOCYTES # (AUTO) 0.7 X10'3 (0-0.9); NEUTROPHILS # (AUTO) 5.3 X10'3 (1.8-7.7); NEUTROPHILS % (AUTO) 72.4 % (42-75); PLATELET COUNT 198 X10'3 (140-440); RED BLOOD COUNT 4.12 X10'6 (4.20-5.60); RED CELL DISTRIBUTION WIDTH 13.7 % (11.5-14.5); WHITE BLOOD COUNT 7.4 X10'3 (4.5-11.0)
[2023-05-24] MEDS: oseltamivir phos 75mg capsule PO SCH ×2 (08:57→20:33)
[2023-05-24] MEDS: oxcarbazepine 150mg tablet PO SCH ×2 (08:58→20:33)
[2023-05-24] MEDS: cyclobenzaprine 10mg tablet PO SCH ×2 (08:58→20:30)
[2023-05-24 09:10] LABS: ALANINE AMINOTRANSFERASE 21 U/L (12-78); ALBUMIN 3.2 G/DL (3.4-5.0); ALKALINE PHOSPHATASE 81 IU/L (46-116); ANION GAP 9 (8-16); ASPARTATE AMINO TRANSFERASE 30 U/L (10-37); BILIRUBIN,TOTAL 0.2 MG/DL (0.1-1.0); BLOOD UREA NITROGEN 9 MG/DL (7-18); CALCIUM 8.4 MG/DL (8.5-10.1); CHLORIDE 98 MMOL/L (99-107); GLUCOSE 99 MG/DL (70-104); MAGNESIUM 1.9 MG/DL (1.5-2.4); POTASSIUM 4.4 MMOL/L (3.5-5.1); SODIUM 133 MMOL/L (135-145); TOTAL CARBON DIOXIDE 25.8 MMOL/L (24-32); TOTAL PROTEIN 6.5 G/DL (6.4-8.2); eCRCL 94 ML/MIN; eGFR > 90 ML/MIN
[2023-05-24] MEDS: metoprolol succinate 25mg (24-HOUR) SR. Tablet PO SCH ×2 (09:19→20:45)
[2023-05-24] MEDS: doxycycline inj 100 MG in normal saline 100ml IV soln 100 ML IV SCH ×2 (09:20→20:29)
[2023-05-24] MEDS: enoxaparin 40mg/0.4ml syringe SQ SCH (20:00)
[2023-05-24] MEDS: prazosin 1mg capsule PO SCH (20:32)
[2023-05-24 20:38] LABS: MAGNESIUM 1.7 MG/DL (1.5-2.4); POTASSIUM 4.1 MMOL/L (3.5-5.1)
[2023-05-24] MEDS: zolpidem 5mg tablet PO SCH (20:39)
[2023-05-25] VITALS (10 sets, daily range): BP systolic 149–158; BP diastolic 64–80; PULSE 58–81; RESP 18–22; TEMP 97.5–98.1; O2SAT 7–100
[2023-05-25] MEDS: methylPREDNISolone sod succ/PF 40mg inj. IV SCH ×2 (00:41→09:15)
[2023-05-25] MEDS: albuterol 2.5 MG/3 ML nebule NEB PRN (00:54)
[2023-05-25] MEDS: normal saline 1000ml 1,000 ML IV SCH (02:25)
[2023-05-25] MEDS: K and/or MAG REPLACEMENT MC SCH (08:00)
[2023-05-25 08:03] LABS: BASOPHILS % (AUTO) 0.1 % (0-1); EOSINOPHILS % (AUTO) 0 % (0-6); HEMATOCRIT 37.6 % (35.0-45.0); HEMOGLOBIN 12.4 g/dl (12.0-16.0); LYMPHOCYTES # (AUTO) 1.3 X10'3 (1.1-4.8); MEAN CORPUSCULAR HEMOGLOBIN 30.2 PG (27.0-31.0); MEAN CORPUSCULAR VOLUME 91.6 FL (78-98); MEAN PLATELET VOLUME 7.2 FL (7.4-10.4); MONOCYTES # (AUTO) 0.5 X10'3 (0-0.9); NEUTROPHILS # (AUTO) 4.2 X10'3 (1.8-7.7); NEUTROPHILS % (AUTO) 68.9 % (42-75); PLATELET COUNT 194 X10'3 (140-440); RED CELL DISTRIBUTION WIDTH 13.9 % (11.5-14.5); WHITE BLOOD COUNT 6.1 X10'3 (4.5-11.0)
[2023-05-25] MEDS: ipratropium/albuterol 3ml nebule NEB SCH (08:10)
[2023-05-25 08:14] LABS: ALANINE AMINOTRANSFERASE 42 U/L (12-78); ALBUMIN 3.3 G/DL (3.4-5.0); ALKALINE PHOSPHATASE 78 IU/L (46-116); ANION GAP 7 (8-16); ASPARTATE AMINO TRANSFERASE 45 U/L (10-37); BILIRUBIN,TOTAL 0.4 MG/DL (0.1-1.0); BLOOD UREA NITROGEN 10 MG/DL (7-18); BUN/CREATININE RATIO 17.2 (10.0-20.0); CALCIUM 8.6 MG/DL (8.5-10.1); CHLORIDE 99 MMOL/L (99-107); CREATININE 0.58 MG/DL (0.40-0.90); GLUCOSE 109 MG/DL (70-104); MAGNESIUM 1.7 MG/DL (1.5-2.4); POTASSIUM 4.3 MMOL/L (3.5-5.1); SODIUM 133 MMOL/L (135-145); TOTAL CARBON DIOXIDE 26.6 MMOL/L (24-32); TOTAL PROTEIN 6.7 G/DL (6.4-8.2); eCRCL 97 ML/MIN; eGFR > 90 ML/MIN
[2023-05-25] MEDS: docusate sod 100mg capsule PO SCH (09:14)
[2023-05-25] MEDS: cyclobenzaprine 10mg tablet PO SCH (09:14)
[2023-05-25] MEDS: oseltamivir phos 75mg capsule PO SCH (09:14)
[2023-05-25] MEDS: oxcarbazepine 150mg tablet PO SCH (09:15)
[2023-05-25] MEDS: metoprolol succinate 25mg (24-HOUR) SR. Tablet PO SCH (09:23)
[2023-05-25] MEDS ORDERED: DOXYCYCLINE 100MG CAPSULE PO SCH (09:23)
[2023-05-25] MEDS ORDERED: IPRA3AMP9 NEB (10:56)
[2023-05-25] MEDS ORDERED: TAM75C PO (10:56)
[2023-05-25] MEDS ORDERED: PRED10TA23 PO (10:56)
[2023-05-25] MEDS ORDERED: DOXY-224 PO (10:56)
== END 2023-05-25 14:10 | disposition home or self-care (01) | DRG 140 ==
LOC: ER 10:50 → ED HOLD 14:31 → EDBEDREQ 05-23 05:13 → PCU 3S 05-23 07:50
PROVIDERS: ADMIT Family Medicine; ATTEND Family Medicine
PROC: 5A09357 Assistance with Respiratory Ventilation, Less than 24 Consecutive Hours, Continuous Positive Airway Pressure (ICD-10-PCS; principal; 2023-05-23)
DX: J44.1 Chronic obstructive pulmonary disease with (acute) exacerbation (principal); J96.01 Acute respiratory failure with hypoxia; J10.00 Influenza due to other identified influenza virus with unspecified type of pneumonia; E87.1 Hypo-osmolality and hyponatremia; M32.9 Systemic lupus erythematosus, unspecified; J45.901 Unspecified asthma with (acute) exacerbation; I48.91 Unspecified atrial fibrillation; F31.9 Bipolar disorder, unspecified; F41.9 Anxiety disorder, unspecified; J44.0 Chronic obstructive pulmonary disease with (acute) lower respiratory infection; K21.9 Gastro-esophageal reflux disease without esophagitis; Z20.822 Contact with and (suspected) exposure to COVID-19; I25.10 Atherosclerotic heart disease of native coronary artery without angina pectoris; F17.210 Nicotine dependence, cigarettes, uncomplicated; K50.90 Crohn's disease, unspecified, without complications; I25.2 Old myocardial infarction; Z82.49 Family history of ischemic heart disease and other diseases of the circulatory system; Z80.7 Family history of other malignant neoplasms of lymphoid, hematopoietic and related tissues; Z88.1 Allergy status to other antibiotic agents; Z88.5 Allergy status to narcotic agent; Z88.8 Allergy status to other drugs, medicaments and biological substances; Z79.899 Other long term (current) drug therapy; Z71.6 Tobacco abuse counseling
CPT/HCPCS: 36415; 36600; 71045; 80053; 82803; 83735; 83880; 84132; 84484; 85018; 85025; 87081; 87502; 87503; 87811; 93005; 94640; 94660; 94760; 99285; A4615; A7015; G0378; J1650; J2060; J2405; J2920; J2930; J3490; J7030; J7040

== ENCOUNTER 2023-08-14 13:56 | Emergency (ER) | payer MEDICAID ==
[~2023-08-14] VITALS: Ht 149.9 cm; Wt 78.6 kg
[~2023-08-14 13:56] MED LIST changes: -AZIT500T9 PO; -BISA10SU62 RC; -BUDE90AE IH; -CEFA500C PO; +CYCL5TAB PO; -DEXA0.5E2 PO; -DOXE150C PO; +DOXY-224 PO; +ESZO3TAB44 PO; -GABA600T13 PO; -IBUP-1985 PO; +IPRA3AMP9 NEB; -LACT1CAP26 PO; -LOP25T PO; +LORA-268 PO; +METO-384 PO; +OLAN5TAB75 PO; +OXCA300T16 PO; +PRAZ2CAP2 PO; -SUCR1TAB34 PO; +TAM75C PO; -TIZA-189 PO; -UMEC1DIS INH; +adenosine 3mg/ml 2ml vial IV ONE
[2023-08-14 14:50] LABS: ALANINE AMINOTRANSFERASE 19 U/L (12-78); ALBUMIN 3.7 G/DL (3.4-5.0); ALBUMIN/GLOBULIN RATIO 1.1 (1.1-1.5); ALKALINE PHOSPHATASE 106 IU/L (46-116); ANION GAP 10 (8-16); ASPARTATE AMINO TRANSFERASE 12 U/L (10-37); BILIRUBIN,TOTAL 0.2 MG/DL (0.1-1.0); BLOOD UREA NITROGEN 4 MG/DL (7-18); BUN/CREATININE RATIO 6.3 (10.0-20.0); CALCIUM 8.7 MG/DL (8.5-10.1); CHLORIDE 94 MMOL/L (99-107); CREATININE 0.63 MG/DL (0.40-0.90); GLUCOSE 111 MG/DL (70-104); POTASSIUM 4.1 MMOL/L (3.5-5.1); SODIUM 129 MMOL/L (135-145); TOTAL PROTEIN 7.1 G/DL (6.4-8.2); eCRCL 81 ML/MIN; eGFR > 90 ML/MIN
[2023-08-14] MEDS: adenosine 3mg/ml 2ml vial IV ONE ×2 (14:50→15:24)
[2023-08-14 14:52] LABS: BASOPHILS # (AUTO) 0.1 X10'3 (0-0.2); BASOPHILS % (AUTO) 0.5 % (0-1); EOSINOPHILS # (AUTO) 0.3 X10'3 (0-0.9); EOSINOPHILS % (AUTO) 2.7 % (0-6); HEMATOCRIT 39.8 % (35.0-45.0); HEMOGLOBIN 13.8 g/dl (12.0-16.0); LYMPHOCYTES # (AUTO) 3.2 X10'3 (1.1-4.8); LYMPHOCYTES % (AUTO) 30.7 % (21-51); MEAN CORPUSCULAR HEMOGLOBIN 31.2 PG (27.0-31.0); MEAN CORPUSCULAR HGB CONC 34.7 g/dL (33.0-36.5); MEAN CORPUSCULAR VOLUME 89.8 FL (78-98); MEAN PLATELET VOLUME 6.5 FL (7.4-10.4); MONOCYTES # (AUTO) 0.9 X10'3 (0-0.9); MONOCYTES % (AUTO) 8.1 % (2-12); NEUTROPHILS # (AUTO) 6.1 X10'3 (1.8-7.7); PLATELET COUNT 332 X10'3 (140-440); RED BLOOD COUNT 4.43 X10'6 (4.20-5.60); RED CELL DISTRIBUTION WIDTH 14.9 % (11.5-14.5); WHITE BLOOD COUNT 10.6 X10'3 (4.5-11.0)
[2023-08-14 15:26] VITALS: BP 133/86; PULSE 90; RESP 18; O2SAT 96
[2023-08-14] MEDS ORDERED: normal saline 1000ML IV soln IVB ONE (15:55)
== END 2023-08-14 16:27 | disposition home or self-care (01) ==
LOC: ER 13:57
DX: I47.10 Supraventricular tachycardia, unspecified (principal); E87.1 Hypo-osmolality and hyponatremia; I48.91 Unspecified atrial fibrillation; I25.10 Atherosclerotic heart disease of native coronary artery without angina pectoris; J44.9 Chronic obstructive pulmonary disease, unspecified; F31.9 Bipolar disorder, unspecified; F41.9 Anxiety disorder, unspecified; Z88.1 Allergy status to other antibiotic agents; Z88.8 Allergy status to other drugs, medicaments and biological substances; Z79.899 Other long term (current) drug therapy; Z88.5 Allergy status to narcotic agent; Z79.631 Long term (current) use of antimetabolite agent
CPT/HCPCS: 36415; 80053; 84484; 85025; 93005; 99285; J0153; A4615

== ENCOUNTER 2024-03-26 13:22 | Emergency (ER) | payer MEDICAID ==
[~2024-03-26] VITALS: Ht 149.9 cm; Wt 80.9 kg
[~2024-03-26 13:22] MED LIST changes: -adenosine 3mg/ml 2ml vial IV ONE
[2024-03-26] MEDS: normal saline 1000ML IV soln IVB ONE (13:56)
[2024-03-26] MEDS: adenosine 3mg/ml 2ml vial IV ONE ×2 (13:56→13:57)
[2024-03-26 14:13] LABS: BASOPHILS # (AUTO) 0.1 X10'3 (0-0.2); BASOPHILS % (AUTO) 0.5 % (0-1); EOSINOPHILS # (AUTO) 0.4 X10'3 (0-0.9); EOSINOPHILS % (AUTO) 2.8 % (0-6); HEMATOCRIT 43.6 % (35.0-45.0); LYMPHOCYTES # (AUTO) 4.2 X10'3 (1.1-4.8); LYMPHOCYTES % (AUTO) 31.4 % (21-51); MEAN CORPUSCULAR HEMOGLOBIN 32.2 PG (27.0-31.0); MEAN CORPUSCULAR HGB CONC 34.4 g/dL (33.0-36.5); MEAN CORPUSCULAR VOLUME 93.7 FL (78-98); MEAN PLATELET VOLUME 7.4 FL (7.4-10.4); MONOCYTES # (AUTO) 1.2 X10'3 (0-0.9); MONOCYTES % (AUTO) 8.8 % (2-12); NEUTROPHILS # (AUTO) 7.6 X10'3 (1.8-7.7); NEUTROPHILS % (AUTO) 56.5 % (42-75); PLATELET COUNT 356 X10'3 (140-440); RED BLOOD COUNT 4.66 X10'6 (4.20-5.60); WHITE BLOOD COUNT 13.4 X10'3 (4.5-11.0)
[2024-03-26 14:18] LABS: ALBUMIN 4.1 G/DL (3.4-5.0); ANION GAP 10 (8-16); BLOOD UREA NITROGEN 4 MG/DL (7-18); BUN/CREATININE RATIO 4.7 (10.0-20.0); CALCIUM 8.8 MG/DL (8.5-10.1); CHLORIDE 103 MMOL/L (99-107); CREATININE 0.85 MG/DL (0.40-0.90); GLUCOSE 127 MG/DL (70-104); MAGNESIUM 1.9 MG/DL (1.5-2.4); POTASSIUM 3.8 MMOL/L (3.5-5.1); SODIUM 135 MMOL/L (135-145); TOTAL CARBON DIOXIDE 22.3 MMOL/L (24-32); eCRCL 59 ML/MIN; eGFR 74 ML/MIN
[2024-03-26] MEDS ORDERED: MAGN64TA8 PO (16:26)
[2024-03-26 16:31] VITALS: BP 122/64; PULSE 90; RESP 18; O2SAT 99
== END 2024-03-26 16:37 | disposition home or self-care (01) ==
LOC: ER 13:23
DX: I47.10 Supraventricular tachycardia, unspecified (principal); I48.91 Unspecified atrial fibrillation; K21.9 Gastro-esophageal reflux disease without esophagitis; G89.29 Other chronic pain; I25.10 Atherosclerotic heart disease of native coronary artery without angina pectoris; F31.9 Bipolar disorder, unspecified; I25.2 Old myocardial infarction; Z88.1 Allergy status to other antibiotic agents; Z88.5 Allergy status to narcotic agent; Z79.899 Other long term (current) drug therapy; Z87.440 Personal history of urinary (tract) infections; Z86.79 Personal history of other diseases of the circulatory system
CPT/HCPCS: 36415; 80048; 83735; 85025; 93005; 96361; 96374; 99291; J0153; J7030

== ENCOUNTER 2024-11-17 11:58 | Emergency (ER) | payer BC ==
[~2024-11-17] VITALS: Ht 149.9 cm; Wt 81.5 kg
[~2024-11-17 11:58] MED LIST changes: +CYCL-920 PO; -CYCL5TAB PO; +MAGN64TA8 PO
[2024-11-17 12:02] VITALS: TEMP 98.7
--- NOTE | 2024-11-17 12:18 | ELECTROCARDIOGRAPH REPORT ---
[facility] Test Date: 2024-11-17 Test Time: 12:16:04 Pat Name: VLADIMIR RIOS Department: EMERGENCY ROOM Room: Gender: F General Worker: HERMAN : 1980 Requested By: BRITTNEY MATT Order Number: [id number] Reading MD: Measurements Intervals [place] Rate: 106 P: 73 MI: 141 QRS: 83 QRSD: 86 T: 55 QT: 324 QTc: 431 Interpretive Statements Sinus tachycardia Probable left atrial enlargement Baseline wander in lead(s) II,III,aVF,V3,V4,V5 Please click the below link to view image of tracing.
--- NOTE | 2024-11-17 12:39 | RADIOLOGY REPORT ---
CHEST RADIOGRAPH Indication: SOB Technique: Single frontal view of the chest was obtained COMPARISON: DI CHEST,SINGLE VIEW on DOS: 05/22/23, DI CHEST,SINGLE VIEW on DOS: 04/17/23, DI CHEST,SINGL E VIEW on DOS: 02/27/23, CHEST,SINGLE VIEW on DOS: 05/09/22, CHEST,SINGLE VIEW on DOS: 01/29/22 FINDINGS: Lines and Tubes: None Lungs: Clear Pleura: No effusion. No pneumothorax. Cardiomediastinal contours: Unremarkable Bones: Unremarkable IMPRESSION: 1. No acute disease.
[2024-11-17 12:49] LABS: MEAN PLATELET VOLUME 8.0 FL (7.4-10.4); RED CELL DISTRIBUTION WIDTH 13.5 % (11.5-14.5)
[2024-11-17 13:10] LABS: CREATININE 0.78 MG/DL (0.40-0.90); PRO BRAIN NATRIURETIC PEPTIDE 32 PG/ML (0-125); TOTAL CARBON DIOXIDE 24.4 MMOL/L (24-32); eCRCL 64 ML/MIN; eGFR 81 ML/MIN
--- NOTE | 2024-11-17 13:24 | Physician Documentation ---
History of Present Illness ~ Chief Complaint: Shortness of Breath Stated Complaint: SOB Time Seen by MD: 12:33 Primary Medical Doctor: [facility] Source: patient Mode of Arrival: Ambulatory Exam Limitations: no limitations HPI A 44-year-old female with COPD who is here with shortness of breath that started three days ago. Patient reports long history of asthma and has been using her inhalers and nebulizer machine but states they have not been providing her with any relief. She states my is currently admitted upstairs with bronchitis and pneumonia. Patient is a smoker and states she has still been smoking. Associated symptoms include body aches and chills and SOB. No chest pain, edema , abdominal pain, nvdc. Patient reports she does have lupus but is not on any immunosuppressive therapy as she states I chose quality of life." Medication Reconciliation Allergies: Coded Allergies: levofloxacin (Verified Allergy, Severe, "MY BODY SWELLS UP AND MY HEART RACES", 05/22/23) morphine (Verified Allergy, Intermediate, swollen tongue, 05/22/23) venlafaxine (Verified Adverse Reaction, Unknown, VIOLENT/SUICIDAL, 05/22/23) Scheduled Albuterol Sulfate (Proventil Hfa), 2 PUFFS INH Q6H Cyclobenzaprine HCl (Cyclobenzaprine HCl), 1 TAB PO BID, (Reported) Doxycycline Hyclate (Doxycycline Hyclate), 100 MG PO BID@0830,1730 Eszopiclone (Eszopiclone), 1 TAB PO HS, (Reported) Ipratropium/Albuterol Sulfate (IPRAT-ALBUT 0.5-3(2.5) MG/3 ML nebule), 3 ML NEB [id number] Magnesium Chloride (Slow-Mag), 2 TAB PO Q12H Metoprolol Succinate (Metoprolol Succinate), 1 TAB PO BID, (Reported) Oseltamivir Phosphate (Tamiflu), 75 MG PO BID Oxcarbazepine (Oxcarbazepine), 2 TAB PO BID, (Reported) Prazosin Hcl (Prazosin Hcl), 2 CAP PO HS, (Reported) Scheduled PRN Lorazepam (Ativan), 0.5 MG PO DAILY PRN for anxiety, (Reported) Olanzapine (Olanzapine), 1 TAB PO DAILY PRN for anxiety, (Reported) Past Medical History Past Medical History: Vertigo, Arrhythmia, Atrial Fibrillation, Coronary Artery Disease, Myocardial Infarction, Asthma, Bronchitis, COPD, Pneumonia, Diverticulitis, GERD, Inflammatory Bowel Dz, Renal Disease, UTI, Chronic Back Pain, Anxiety, Bipolar Past Surgical History: no surgical history Patient History: FH: heart disease FATHER Paternal grandfather FH: lymphoma Maternal grandmother Paternal grandmother Alcohol Use: None Drug Use: none Lives with: Other Lives In: Home Occupation: employed Review of Systems All Other Systems at this time: Reviewed and Negative Physical Exam Vital Signs: Temperature: 98.7, Source: Oral, Heart Rate: 111, Respiratory Rate: 15, BP: 116/84, Pulse Oximetry: 95, Weight: 81.500 Oxygen Flow Rate: 0 Physical Exam GENERAL: Alert, no acute distress. HEENT: NCAT, EOMI, PERRL, normal oropharynx, moist oral mucosa. NECK: Supple, trachea midline. CARDIAC: Regular rate and rhythm, no murmurs, rubs, or gallops. Equal distal pulses. No lower extremity edema, cap refill less than 2 seconds. RESPIRATORY: Wheezing throughout posterior lung brizuela. No rhonchi or rales. Coughing intermittently during exam but no respiratory distress. Cough sounds dry. GASTROINTESTINAL: Non distended, soft, nontender, No guarding or rebound. MUSCULOSKELETAL: Normal range of motion, nontender, no swelling. Normal gait. NEUROLOGICAL: Awake, alert, and oriented x 3. SKIN: Warm/dry, no pallor, no rash. PSYCH: Alert and appropriate. Affect congruent with mood. Speech is clear. Good eye contact. Progress Results/Orders Results/Orders Orders - ELLIOTT WILKERSON Methylprednisolone Sod Succ (Solumedrol (11/17/24 13:20) Svn Treatment (11/17/24 13:16) Ipratropium/Albuterol Nebule (Ipratrop/A (11/17/24 13:20) Vital Signs 11/17/24 11/17/24 11/17/24 12:02 12:21 12:33 Temp 98.7 Pulse 120 111 Resp 24 15 B/P (MAP) 121/75 116/84 (95) Pulse Ox 92 95 O2 Flow Rate 0 0 Laboratory Tests Test 11/17/24 12:35 11/17/24 12:36 Sodium Level 137 Potassium Level 3.6 Chloride Level 101 Carbon Dioxide Level 24.4 Anion Gap 12 Blood Urea Nitrogen 6 L Creatinine 0.78 Estimated GFR/1.73 m2 81 BUN/Creatinine Ratio 7.7 L Glucose Level 111 H Lactic Acid Level 1.4 Calcium Level 9.2 Troponin I High Sensitivity 4 Pro-B-Type Natriuretic Peptide 32 Albumin 3.6 Chemistry Comments White Blood Count 16.5 H Red Blood Count 4.80 Hemoglobin 15.0 Hematocrit 43.6 Mean Corpuscular Volume 90.8 Mean Corpuscular Hemoglobin 31.3 H Mean Corpuscular Hemoglobin Concent 34.5 Red Cell Distribution Width 13.5 Platelet Count 260 Mean Platelet Volume 8.0 Neutrophils (%) (Auto) 80.4 H Lymphocytes (%) (Auto) 12.0 L Monocytes (%) (Auto) 6.9 Eosinophils (%) (Auto) 0.3 Basophils (%) (Auto) 0.4 Neutrophils # (Auto) 13.3 H Lymphocytes # (Auto) 2.0 Monocytes # (Auto) 1.1 H Eosinophils # (Auto) 0.1 Basophils # (Auto) 0.1 CBC Comment Re-Evaluation Re-evaluation : Bronchodilator Tx Response: moderate relief Re-Evaluation: Improved Medical Decision Making Differential Dx:Considerations: Include: anxiety, asthma, bronchitis, ca rdiogenic shock, CHF, COPD, dysrhythmia, hypertension, accelerated, hypertension, essential, hypertension, malignant, hyperventilation, hyponatremia, myocardial infarction, panic attack, pneumonia, pneumonitis, pneumothorax, PSVT, pulmonary embolism, respiratory distress, respiratory failure, sinusitis, upper resp. infection, other Additional Infomation Patient's white blood cell count is elevated; however, CXR was negative for pneumonia. Given her white blood cell count I am going to cover her for bacterial etiology of her respiratory infection. She has not been on steroids and there is no other explanation for her elevated wbc. Her elevated WBC could be inflammatory but given her COPD we would cover her with antibiotics regardless. Departure Time of Disposition: 13:24 Disposition: 01 HOME / SELF CARE / HOMELESS Impression: Primary Impression: COPD with acute exacerbation Additional Impression: Nicotine dependence Qualified Codes: F17.210 - Nicotine dependence, cigarettes, uncomplicated Condition: Stable Discharge Instructions: Acute Bronchitis, Adult, [id number] Additional Instructions: f/u with pcp in one week return to er if not improving on treatment plan rx for steroids and antibiotics sent to pharmacy continue your inhalers and nebulizer machine Referrals: NO PRIMARY CARE PROVIDER (PCP) Prescriptions Azithromycin (Azithromycin) 250 Mg Tablet 1 TAB PO UD for 5 Days, #6 TAB 2 the first day followed by 1 for days 2-5 Prov: ELLIOTT WILKERSON 11/17/24 Prednisone* (Prednisone*) 20 Mg Tablet 1 TAB PO Q12H for 5 Days, #10 TAB Prov: ELLIOTT WILKERSON 11/17/24 Education Educated: Patient Educated regarding: diagnosis, treatment, need for follow up Signature Scribe Signature: x Attestation: ELLIOTT Womack Nov 17, 2024 13:24
[2024-11-17] MEDS ORDERED: AZIT250T81 PO (13:25)
[2024-11-17] MEDS ORDERED: PRED20TA PO (13:25)
[2024-11-17] MEDS: ipratropium/albuterol 3ml nebule NEB ONE (13:32)
[2024-11-17 13:33] VITALS: PULSE 98; RESP 16; O2SAT 93
[2024-11-17 13:41] VITALS: PULSE 102; RESP 18; O2SAT 94
[2024-11-17] MEDS: albuterol 2.5 MG/3 ML nebule NEB ONE (13:51)
[2024-11-17 13:52] VITALS: PULSE 98; RESP 16; O2SAT 94
[2024-11-17 14:00] VITALS: BP 123/75
[2024-11-17 14:11] VITALS: PULSE 105; RESP 16; O2SAT 95
== END 2024-11-17 14:19 | disposition home or self-care (01) ==
LOC: ER 11:59
DX: J44.1 Chronic obstructive pulmonary disease with (acute) exacerbation (principal); I25.10 Atherosclerotic heart disease of native coronary artery without angina pectoris; F17.210 Nicotine dependence, cigarettes, uncomplicated; K21.9 Gastro-esophageal reflux disease without esophagitis; F41.9 Anxiety disorder, unspecified; F31.9 Bipolar disorder, unspecified; I25.2 Old myocardial infarction; I48.91 Unspecified atrial fibrillation; Z88.5 Allergy status to narcotic agent; Z88.1 Allergy status to other antibiotic agents; Z79.899 Other long term (current) drug therapy
CPT/HCPCS: 36415; 71045; 80048; 83605; 83880; 84484; 85025; 87040; 93005; 94640; 96374; 99285; J2919; 94760